=== PATIENT | female | born 1985 | race Caucasian/White ===

== ENCOUNTER 2018-11-23 12:53 | Emergency (ER) | payer BC, SELFPAY ==
[2018-11-23] VITALS (34 sets, daily range): BP systolic 110–142; BP diastolic 60–88; PULSE 80–106; RESP 13–26; TEMP 36.8–37.1; O2SAT 92–100
--- NOTE | 2018-11-23 13:02 | W.ED.GENAD ---
Discharge Plan Disposition Patient Disposition: HOME Condition: Improving Discharge Details Chief Complaint: Allergic Clinical Impression: Allergic reaction Primary Care Provider: Amy Cedeno ED Provider: Pooja Rubin Home Meds and New Rx's Prescriptions: New prednisone 20 mg tablet 20 mg PO DAILY Qty: 6 RF: 0 Continued epinephrine [EpiPen] 0.3 mg/0.3 mL auto-injector 0.3 mg IM ONCE RF: 0 Discharge Instructions Instructions: General Allergic Reaction (ED) Additional Instructions: Encourage hydration. Take prednisone as prescribed, begin this tomorrow morning. Please follow-up with primary care next week for reevaluation. You may continue with Benadryl as needed. If you develop shortness of breath, difficulty breathing, intraoral lesions, swelling of your tongue or other new/worsening symptoms please seek care urgently once again. Referrals: Amy Cedeno, [facility] [Primary Care Provider] - Medical Decision Making Patient presents today with chief complaint of allergic reaction to cashews, known allergen. On exam, patient appears anxious, shaky. She has some swelling, most notable of the left eye. I do not appreciate any swelling of the tongue. There is no stridor or wheezing. Patient is tachypneic and tachycardic. Clinic is 0.3 mg IM epinephrine, Zantac, Solu-Medrol. Will give albuterol inhaler. Discussed explained the patient is in agreement. We will continue to monitor. Patient feeling improved after above regimen. Continues to have no wheezing. She feels that her breathing is improved. Shestill has swelling over her eyes but no rash noted on reexamination. Patient is not feeling fatigued or feeling much improved. Patient has been in the department for 4 hours and continues to feel improved with no recurrence of her symptoms. Patient will be discharged home. Will prescribe prednisone burst to prevent recurrence of symptoms. Advise follow-up with primary care next week. She is given strict return precautions. All her questions and concerns were addressed she is in agreement this plan. Patient has an EpiPen at home and knows how and when to use this. Discussed removing all nut containing products in the house with her . HPI General Mode of arrival: ambulatory. Date/Time Provider Initiated Documentation: 11/23/18 12:54. Limitations to Documentation: no limitations. Information obtained by: patient, family and RN notes reviewed. HPI Narrative: Patient is a 33-year-old female, brought in by 1 of her friends, after ingestion of cashew. 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 Was in a bike race and had a energy bar without knowing that it contained cashews. States that she immediately felt off, develop shortness of breath, facial swelling, itching of her chest, neck and face. She feels that her tongue is swelling. She reports that she took Benadryl orally but did not use her EpiPen. Related Data Home Medications Medication Instructions Recorded Confirmed epinephrine 0.3 mg/0.3 mL 0.3 mg IM ONCE 11/21/18 11/23/18 injection, auto-injector prednisone 20 mg PO DAILY #6 tab 11/23/18 Previous Rx's Medication Instructions Recorded prednisone 20 mg PO DAILY #6 tab 11/23/18 Allergies Allergy/AdvReac Type Severity Reaction Status Date / Time kiwi Allergy Severe Mouth and Unverified 10/28/18 08:45 Throat Itchy/Hives tree nut Allergy Severe Anaphylaxis Unverified 10/28/18 08:45 banana Allergy Intermediate Itching Unverified 10/28/18 08:45 Review of Systems Constitutional Reports as per HPI, Denies chills, Denies fever(s) and Denies headache(s) Eyes Reports as per HPI, Denies eye discharge and Denies irritation ENT Reports as per HPI, Denies headache(s), Reports throat swelling and Reports tongue swelling Cardiovascular Reports as per HPI, Denies chest pain, Reports dyspnea and Denies dyspnea on exertion Respiratory Reports as per HPI, Denies pain on inspiration, Denies pain with cough, Reports dyspnea, Denies dyspnea on exertion and Reports wheezing Gastrointestinal Reports as per HPI, Denies abdominal pain, Denies change in bowel habits, Reports nausea and Denies vomiting Integumentary/Breasts Reports as per HPI and Denies rash Neurologic Reports as per HPI and Denies headache(s) Allergic/Immunologic Reports throat swelling, Reports tongue swelling and Reports wheezing [facility] Medical History Migraine (Chronic) Multinodular goiter (Acute) Perineural cyst (Acute) Hx of viral meningitis (Acute ~12/2014) Melanocytic nevus of skin (Acute) Right knee pain (Acute) Family History Brother Atopy Asthma Father Atopy Paternal Grandmother Stroke Mother Hyperlipidemia SVT (supraventricular tachycardia) Sister Endometriosis Maternal Grandfather Myocardial infarction Colon cancer Maternal Grandmother Hyperlipidemia Paternal Grandfather Aortic aneurysm Social History Smoking/Tobacco Use Status: Never Additional Social history: unable to assess Exam Const General: cooperative, healthy appearing, comfortable, no acute distress, well developed and well groomed Nutritional Appearance: average body habitus and well nourished Orientation: alert and awake [facility] Head: normal to inspection, normocephalic and atraumatic Ears: hearing grossly normal bilaterally and external ears normal General nose exam: external nose normal and nares normal Face and sinus: normal facial exam, sinuses nontender and face symmetric Mouth: oral mucosae normal, lip normal, tongue normal, oropharynx normal and moist mucous membranes Teeth and gingiva: dentition normal Throat: posterior oropharynx normal, tonsils normal and uvula midline Eyes Periorbital: periorbital findings abnormal (swelling of upper eyelids) Conjunctivae: conjunctivae normal Pupils: PERRL EOM: EOM intact bilaterally Neck Neck: normal visual inspection, full ROM, no lymphadenopathy and no meningeal signs Resp Effort & Inspection: normal respiratory effort, able to speak in complete sentences and no respiratory distress Auscultation: clear to auscultation bilaterally, no rales, no rhonchi and no wheezes Cardio Rate: regular rate Rhythm: regular rhythm Heart Sounds: S1 normal and S2 normal Skin General skin exam: no rashes or lesions noted Neuro General: alert and awake Cognition: normal cognition Speech: speech normal Gait: normal gait Psych Appearance: grossly normal and well kempt Mental Status: mental status grossly normal Speech and Movement: speech and movement normal
[2018-11-23] MEDS: EPINEPHrine 1 MG/ML AMP pres-free (13:11)
[2018-11-23] MEDS: methylPREDNISolone SUCC 125 MG VIAL IVP (13:12)
[2018-11-23] MEDS: Albuterol 2.5 MG/3 ML INH SOLN VIAL UPD (13:13)
[2018-11-23] MEDS: Ondansetron 4 MG/2 ML VIAL IVP (13:13)
[2018-11-23] MEDS: Normal Saline 1,000 ML 1000 ML IV (13:14)
== END 2018-11-23 17:02 | disposition home or self-care (01) ==
PROVIDERS: Emergency Provider Physician Assistant; PCP Nurse Practitioner Adult Health
DX: T78.1XXA Other adverse food reactions, not elsewhere classified, initial encounter (principal); H05.222 Edema of left orbit; R06.82 Tachypnea, not elsewhere classified; R00.0 Tachycardia, unspecified; L29.8 Other pruritus; R60.0 Localized edema; Z91.018 Allergy to other foods
CPT/HCPCS: 80053; 94640; 96361; 96365; 96372; 96375; 99284; 85025; J0171; J2405; J2930; J7613

== ENCOUNTER 2019-09-05 02:02 | Outpatient (CLI) | payer BC, SELFPAY ==
--- NOTE | 2019-09-05 11:02 | DI.MRI_ITS ---
EXAM: MR LOWER JOINT RT WO CLINICAL HISTORY: ACUTE RT KNEE PAIN, M25.561, ? MEDIAL MENISCUS TEAR. TECHNIQUE: Multiplanar multisequence MRI was performed. COMPARISON: No exams were available for comparison FINDINGS: MR examination of the knee was performed according to the usual protocol. There is no significant ximena ny signal abnormality seen. The articular cartilage of all three joints appears within normal limits . The extensor mechanism appears normal. No retinacular injury. Hoffa fat pad is unremarkable. Cruciate ligaments appear intact. Menisci appear normal with no evidence of tear. No collateral lig ament injury or posterolateral corner abnormality seen. IMPRESSION: Negative knee MRI.
== END 2019-09-05 02:22 ==
PROVIDERS: PCP Nurse Practitioner Adult Health; Visit Provider Orthopaedic Surgery
DX: M25.561 Pain in right knee (principal)
CPT/HCPCS: 73721

== ENCOUNTER 2021-01-03 15:48 | Outpatient (REF) | payer BC, SELFPAY ==
--- NOTE | 2021-01-03 14:00 | PAPFT_PTH ---
PATIENT: Tia Rajan LOC: [facility] U#:[id number] AGE/SX: 35/F ROOM: RE01/03/[address]: Amy Cedeno APRN : 1985 BED: DIS: 01/03/2021 SPEC #: [id number] RECD: 01/03/21 18:01 STATUS: R[place] REQ #: [id number] ROJAS: 01/03/21 14:[address]: Amy Cedeno DEPT: [facility] Cytology RECD BY: Rae Nina Tissues: 1 - CX/ENDOCX FOR PAP SMEARS Procedures: PAP THIN PREP/UVM Screening HPV DNA PROBE Comments: [id number]
== END 2021-01-03 15:49 | disposition home or self-care (01) ==
LOC: LBN 15:48
PROVIDERS: PCP Nurse Practitioner Adult Health; Visit Provider Nurse Practitioner Adult Health
DX: Z12.4 Encounter for screening for malignant neoplasm of cervix (principal); Z11.51 Encounter for screening for human papillomavirus (HPV)
CPT/HCPCS: 88142; 87624

== ENCOUNTER 2021-07-07 15:17 | Outpatient (REF) | payer BC, SELFPAY ==
[2021-07-07 17:59] LABS: Abs Immature Grans 0.02 10^3/uL (0.0-0.06); Absolute Basophil Count 0.05 10^3/uL (0.0-0.2); Absolute Eosinophil Count 0.11 10^3/uL (0.0-0.7); Absolute Lymphocyte Count 3.18 10^3/uL (1.2-3.4); Absolute Monocyte Count 0.94 10^3/uL (0.1-0.8); Absolute Neutrophil Count 5.24 10^3/uL (1.2-6.7); Basophils % 0.5; Eosinophils % 1.2; HCT 37.3 % (36.0-46.0); HGB 12.2 g/dL (11.2-15.7); Immature Grans % 0.2; Lymphocytes % 33.3; MCH 29.3 pg (27.0-33.0); MCHC 32.7 % (32.0-36.0); MCV 89.7 fL (80-95); MPV 10.3 fL (8.0-11.0); Monocytes % 9.9; Neutrophils % 54.9; Nucleated RBC 0 %; Platelet Count 355 10^3/uL (130-400); RBC 4.16 10^6/uL (3.93-5.22); RDW-SD 39.5 fL; WBC 9.54 10^3/uL (4.4-10.8)
[2021-07-07 18:08] LABS: ALT 17 U/L (14-59); AST 10 U/L (15-37); Albumin 4.1 g/dL (3.4-5.0); Alkaline Phosphatase 54 U/L (46-116); Anion Gap 7.4 mmol/L (3-11); BUN 14 mg/dL (7-18); Bilirubin, Total 0.2 mg/dL (0.2-1.0); CO2 27.6 mmol/L (21.0-32.0); CREATININE 0.7 mg/dL (0.55-1.02); Chloride 104 mmol/L (98-107); Glucose 99 mg/dL (74-106); Potassium 4.2 mmol/L (3.5-5.1); Sodium 139 mmol/L (136-145); Total Protein 6.9 g/dL (6.4-8.2)
== END 2021-07-07 15:18 | disposition home or self-care (01) ==
LOC: LBN 15:17
PROVIDERS: Nurse Practitioner Family; PCP Nurse Practitioner Adult Health; Visit Provider Nurse Practitioner Adult Health
DX: R10.84 Generalized abdominal pain (principal)
CPT/HCPCS: 80053; 85025

== ENCOUNTER 2021-07-15 19:09 | Emergency (ER) | payer BC, SELFPAY ==
--- NOTE | 2021-07-15 19:13 | W.ED.GENAD ---
Discharge Plan Disposition Patient Disposition: HOME Condition: Improving Discharge Details Clinical Impression: Chronic abdominal pain Primary Care Provider: Amy Cedeno ED Provider: Candy Younger Home Meds and New Rx's Prescriptions: New dicyclomine 20 mg tablet 20 mg PO TID PRN (Reason: pain) Qty: 14 RF: 0 Continued Mirena 20 mcg/24 hours (5 yrs) 52 mg intrauterine device 1 device IY ONCE RF: 0 albuterol sulfate [Proventil HFA] 90 mcg/actuation HFA aerosol inhaler 1 - 2 puff IH Q6H PRN (Reason: shortness of breath or wheezing) Qty: 8.5 RF: 1 epinephrine [EpiPen] 0.3 mg/0.3 mL auto-injector 0.3 mg IM ONCE Qty: 2 RF: 1 Discharge Instructions Instructions: Chronic Abdominal Pain (ED) Additional Instructions: Your lab work and CT scan were reassuring today and show no evidence of acute abnormal significant findings. Drink plenty of fluids and plenty of rest. Start taking lirr-qmo-qirdbuf MiraLAX daily which may help with constipation as a moderate amount of stool was noted within your colon on the CT scan today. A prescription for Bentyl which is a medication that can help with abdominal spasm has been sent electronically to your pharmacy. You have been placed on women's wellness and general surgery's list for follow-up. Please call their offices to confirm your follow-up appointments. Follow-up with your primary care doctor in 1 week. Return to the emergency department with any worsening or new concerning symptoms such as fever, persistent vomiting or worsening pain. Referrals: [facility] [Provider Group] Stacy De Leon MD [ [facility] STAFF PHYSICIAN] - Gabriela Park DO [OSTEOPATHIC DOCTOR] - Discharge Data Discharge Physician: Candy Younger Medical Decision Making 36-year-old female presents with left lower quadrant pain for the past 2.5 weeks. She appears comfortable and nontoxic. Vitals within normal limits. She has tenderness to her left lower quadrant but no rigidity or guarding. Differential diagnosis includes acute diverticulitis, pyelonephritis, UTI, kidney stone, ovarian cyst, etc. Will place an IV, bolus IV fluids, screening labs, urinalysis, CT abdomen pelvis and give a dose of Toradol and reassess. Labs reviewed and unremarkable. CT notes: IMPRESSION: 1. There is a moderate amount of stool distributed in the mid and proximal colon suggesting possible constipation. 2. Mild proximal sigmoid diverticulosis without evidence of diverticulitis. 3. No evidence of hydronephrosis or urolithiasis. No evidence of pyelonephritis. 4. Noncalcified pulmonary nodules in the lung bases measuring up to 6.2 mm. These are nonspecific. Please see follow-up recommendations above. 5. Additional nonemergent findings detailed above. Patient reassessed and her pain is improved. Results discussed with patient. Advised that she start taking MiraLAX daily which may help with some pain relief. She was given a dose of Bentyl here and a prescription sent electronically to her pharmacy. She was previously aware of her pulmonary nodules. Patient feels comfortable going home. Although her CT notes diverticulosis, with normal white blood cell count and without fever or evidence of diverticulitis, do not see indication for antibiotics and the patient is agreeable. Although she has no urethritis symptoms, she was offered pelvic exam but declined stating she can follow-up with women's wellness for this. Patient was placed on general surgery for reevaluation and consideration for colonoscopy and with [facility] for re-evaluation and also for new IUD placement as she states she is due. Advised to follow up with the primary care doctor for re-evaluation. Usual and customary return precautions given prior to discharge. Medical Records Medical records reviewed: Yes I reviewed the patient's medical records. Imaging Data Radiologic Study: Radiologist's impression: CT Abdomen And Pelvis With Contrast Exam date and time: 07/15/2021 7:55 PM Age: 36 years old Clinical indication: Other: Llq pain, R/O diverticulitis, kidney stone, pyelo TECHNIQUE: Imaging protocol: Computed tomography of the abdomen and pelvis with contrast. Total images: 1115 COMPARISON: MR LOWER JOINT RT WO 09/05/2019 11:02 AM FINDINGS: Lungs: 5 mm juxtapleural pulmonary nodule in the anterior right middle lobe on series 5, image 9. 5.5 mm juxtapleural nodule in the posterior right base on image 162. 6.2 mm nodule in the posterolateral left lower lobe on image 49. For patients at low risk (minimal or absent history of smoking and of other known risk factors), recommend CT at 3-6 months, then consider CT at 18-24 months. For patients at high risk (history of smoking or of other known risk factors), recommend CT at 3-6 months, then CT at 18-24 months. (Najma et al., Fleischner Society, 2017). Heart: Heart size normal. Mediastinal space: The visualized distal esophagus is largely contracted without gross abnormality. Liver: Normal contour. No mass lesions. No intrahepatic biliary ductal dilatation. Normal variant hepatic venous drainage from the right hepatic lobe posterior segment to the IVC. Gallbladder and bile ducts: The gallbladder is partially contracted but otherwise unremarkable. Nondilated common bile duct. Pancreas: Normal. No inflammatory changes or ductal dilation. Spleen: Normal. No splenomegaly. Adrenal glands: Normal. No adrenal mass. Kidneys and ureters: No acute abnormalities. No hydronephrosis or hydroureter. No urinary tract stones are identified. Stomach and bowel: The stomach is largely contracted without gross abnormality. The small bowel is nondilated with no gross abnormality. There is a moderate amount of stool distributed in the mid and proximal colon suggesting possible constipation. Mild proximal sigmoid diverticulosis without evidence of diverticulitis. Appendix: Retrocecal appendix measuring 5 mm diameter with no evidence of appendicitis. Intraperitoneal space: No free fluid or air. Vasculature: No acute process. No abdominal aortic aneurysm. Lymph nodes: No adenopathy. Urinary bladder: Unremarkable as visualized. Reproductive: IUD in the uterus, grossly well-positioned. Bones/joints: No acute osseous abnormalities. Soft tissues: Unremarkable. IMPRESSION: 1. There is a moderate amount of stool distributed in the mid and proximal colon suggesting possible constipation. 2. Mild proximal sigmoid diverticulosis without evidence of diverticulitis. 3. No evidence of hydronephrosis or urolithiasis. No evidence of pyelonephritis. 4. Noncalcified pulmonary nodules in the lung bases measuring up to 6.2 mm. These are nonspecific. Please see follow-up recommendations above. 5. Additional nonemergent findings detailed above. Lab Data Lab results reviewed: Yes I reviewed the patient's lab results. Labs: Laboratory Tests Range/Units 07/15/21 07/15/21 07/15/21 19:20 19:20 19:20 WBC (4.4-10.8) 10^3/uL 9.89 RBC (3.93-5.22) 10^6/uL 3.98 Hgb (11.2-15.7) g/dL 11.7 Hct (36.0-46.0) % 35.7 L MCV (80-95) fL 89.7 MCH (27.0-33.0) pg 29.4 MCHC (32.0-36.0) % 32.8 RDW (11.7-14.6) % 11.9 Plt Count (130-400) 10^3/uL 339 MPV (8.0-11.0) fL 10.0 Immature Gran % 0.3 Neutrophils % 42.9 Lymphocytes % 45.1 Monocytes % 9.1 Eosinophils % 2.0 Basophils % 0.6 Nucleated RBC % % 0 Absolute Neutrophils (1.2-6.7) 10^3/uL 4.24 Absolute Lymphocytes (1.2-3.4) 10^3/uL 4.46 H Absolute Monocytes (0.1-0.8) 10^3/uL 0.90 H Absolute Eosinophils (0.0-0.7) 10^3/uL 0.20 Absolute Basophils (0.0-0.2) 10^3/uL 0.06 Sodium (136-145) mmol/L 139 Potassium (3.5-5.1) mmol/L 3.7 Chloride (98-107) mmol/L 105 Carbon Dioxide (21.0-32.0) mmol/L 27.4 Anion Gap (3-11) mmol/L 6.6 BUN (7-18) mg/dL 19 H Creatinine (0.55-1.02) mg/dL 0.7 Estimated GFR/1.73 m2 (mL/min/1.73m2) >= 60.00 Glucose (74-106) mg/dL 85 Calcium (8.5-10.1) mg/dL 8.7 Total Bilirubin (0.2-1.0) mg/dL 0.2 AST (15-37) U/L 18 ALT (14-59) U/L 13 L Alkaline Phosphatase (46-116) U/L 52 Total Protein (6.4-8.2) g/dL 7.0 Albumin (3.4-5.0) g/dL 3.9 Lipase (73-393) U/L 84 Urine Color (Yellow) Yellow Urine Clarity (Clear) Clear Urine pH (5-8) 5.5 Ur Specific [place] (1.005-1.025) >= 1.030 H Urine Protein (Negative) mg/dL Negative Urine Ketones (Negative) mg/dL Negative Urine Blood (Negative) Trace-intact H Urine Nitrite (Negative) Negative Urine Bilirubin (Negative) Negative Urine Urobilinogen (Up TO 0.2) EU/dL 0.2 Ur Leukocyte Esterase (Negative) Negative Urine RBC (0-2) HPF 0-2 Urine WBC (0-5) HPF 0-2 Ur Epithelial Cells (Negative) HPF Rare Urine Crystals (Negative) HPF Negative Urine Bacteria (Negative) HPF Negative Urine Casts (Negative) LPF Negative Urine Mucus (Negative) Negative Urine Other (Negative) Negative Ur Culture Indicated? No Urine Glucose (Negative) mg/dL Negative HPI General Mode of arrival: ambulatory. Date/Time Provider Initiated Documentation: 07/15/21 19:12. Limitations to Documentation: no limitations. Information obtained by: patient. HPI Narrative: Patient is a 36-year-old female who presents to the ED with complaint of left lower quadrant abdominal pain for the past 2 and half weeks. She states the pain is constant dull and burning and intermittent sharp. She states the pain is currently 7/10 but at its worst can be 9/10. She denies any relief with Tylenol, last dose 3 days ago. She does admit to intermittent suprapubic pressure and urinary frequency but denies any dysuria, hematuria, urgency. She states she has not been sexually active for at least 1 year and denies any known exposure to STDs, vaginal discharge, or genital lesions. She does admit to some nausea today but denies any vomiting. She denies any fever or change in bowel movements. She states she has been having regular daily bowel movement which is her baseline. She was seen by her PCP office on 07/07 for this pain and referred for outpatient lab work which was unremarkable with plan for outpatient ultrasound or CT scan if lab work abnormal. She states she has a scheduled CT scan of her abdomen on 07/27. Related Data Home Medications Medication Instructions Recorded Confirmed levonorgestrel 20 mcg/24 hours (7 1 device IY ONCE 12/09/18 07/15/21 yrs) 52 mg intrauterine device albuterol sulfate 90 mcg/actuation 1 - 2 puff IH Q6H PRN #8.5 gm 10/27/20 07/15/21 aerosol inhaler epinephrine 0.3 mg/0.3 mL 0.3 mg IM ONCE #2 each 10/27/20 07/15/21 injection, auto-injector dicyclomine 20 mg PO TID PRN #14 tab 07/15/21 Previous Rx's Medication Instructions Recorded albuterol sulfate 90 mcg/actuation 1 - 2 puff IH Q6H PRN #8.5 gm 10/27/20 aerosol inhaler epinephrine 0.3 mg/0.3 mL 0.3 mg IM ONCE #2 each 10/27/20 injection, auto-injector dicyclomine 20 mg PO TID PRN #14 tab 07/15/21 Allergies Allergy/AdvReac Type Severity Reaction Status Date / Time kiwi Allergy Severe Mouth and Verified 07/15/21 19:29 Throat Itchy/Hives tree nut Allergy Severe Anaphylaxis Verified 07/15/21 19:29 banana Allergy Intermediate Itching Verified 07/15/21 19:29 General MICHELLE: 2 Review of Systems All systems reviewed & are unremarkable except as noted in HPI and below Constitutional Constitutional: Reports as per HPI, Denies chills and Denies fever(s) Eyes Eyes: Denies blurry vision ENT Ears, Nose, Mouth, and Throat: Denies dizziness, Denies sore throat and Denies throat swelling Cardiovascular Cardiovascular: Denies chest pain and Denies dyspnea Respiratory Respiratory: Denies cough and Denies dyspnea Gastrointestinal Gastrointestinal: Reports abdominal pain, Denies diarrhea and Denies vomiting Genitourinary Genitourinary: Denies hematuria and Denies dysuria Musculoskeletal Musculoskeletal: Denies back pain and Denies numbness Integumentary/Breasts Skin/Breast: Denies lesions and Denies rash Neurologic Neurologic: Denies dizziness, Denies localized weakness and Denies numbness Allergic/Immunologic Allergic/Immunologic: Denies throat swelling PFSH All Active Problems (Updated 07/15/21 @ 21:49 by Candy Younger DO) Chronic abdominal pain (Acute) Onychomycosis (Chronic) Toenails Surveillance of intrauterine contraception (Chronic) Placed 2014 ([place]) Ichthyosis vulgaris (Chronic) Emollient Migraine (Chronic) Monthly (IUD helped); treats with excedrin migraine (effective) Medical History History of multiple pulmonary nodules Serial CTs (6mm) in [place] showed stable and no further f/u recommended Hx of viral meningitis (~12/2014) Multinodular goiter ~2008 f/u studies showed resolution 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 Family History Brother Atopy Asthma Father Atopy Paternal Grandmother Stroke Heart disease Mother Hyperlipidemia SVT (supraventricular tachycardia) Sister Endometriosis Maternal Grandfather Myocardial infarction Colon cancer Heart disease Hypertension Maternal Grandmother Hyperlipidemia Paternal Grandfather Aortic aneurysm Social History Smoking/Tobacco Use Status: Never Smoking risk assessment performed?: Yes Alcohol Intake: current Alcohol Intake frequency: a few times a month Drug use: Never Substance use type: does not use Adopted: No Household members: spouse Housing: house Number of Children: 0 Communication Needs: Corrective Lenses Do you need help understanding health information?: Rarely 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 Pets and animals: Yes Pets and animals: dog(s) Current gender identity: female What is your relationship status?: Panel score (0-1 are the most socially isolated patients): 0 What type of physical activity do you participate in: bicycling, running and advised to exercise at least 150 min/week (moderate intensity aerobic) Duration: 60-90 minutes/day Frequency: 5-6 times per week Seatbelt use: always Helmet use: Yes Drive intox or ride w/intox ice delivery driver: No Water heater temp set <120 deg: Yes Working smoke detector in home: Yes Fire extinguisher in home: Yes Carbon monox detector in home: Yes Firearms in home: No Do you feel safe at home: Yes Do you feel safe in your relationship?: Yes Victim of physical abuse: No Victim of emotional abuse: No Victim of sexual abuse: No Additional Social history: unable to assess Exam Const General: cooperative, healthy appearing and no acute distress HENMT Head: normal to inspection Face and sinus: normal facial exam Eyes General: appearance normal, both eyes and all related structures EOM: EOM intact bilaterally Neck Neck: normal visual inspection and No submandibular swelling Lymphatic: no lymphadenopathy noted Chest Chest: normal inspection of the chest and no tenderness Resp Effort & Inspection: normal respiratory effort and able to speak in complete sentences Auscultation: clear to auscultation bilaterally Cardio Rate: regular rate Rhythm: regular rhythm GI Inspection: normal to inspection Palpation: soft, not firm, not rigid and tender in the LLQ Auscultation: hypoactive bowel sounds Skin General skin exam: no rashes or lesions noted Neuro General: patient alert, patient awake and patient oriented x3 Cognition: normal cognition Speech: speech normal Motor: muscle tone normal throughout Sensory Exam: no sensory deficits noted Extrem General: normal to inspection, full ROM, capillary refill normal, no calf tenderness bilaterally and no edema Psych Appearance: grossly normal Mental Status: mental status grossly normal Speech and Movement: speech and movement normal Affect: normal affect
[2021-07-15 19:22] VITALS: BP 139/82; PULSE 75; RESP 16; TEMP 36.8; O2SAT 98
--- NOTE | 2021-07-15 19:45 | DI.CT_ITS ---
Exam(s) CT ABDOMEN PELVIS W EXAM: CT ABDOMEN PELVIS W CLINICAL HISTORY: LLQ pain, r/o diverticulitis, kidney stone, pyelo. TECHNIQUE: Imaging Protocol: Axial computed tomography images with coronal and sagittal reformatted images were created and reviewed CONTRAST MATERIAL: Intravenous: Omnipaque 350 Contrast volume:100 ml Oral: no COMPARISON: No exams were available for comparison FINDINGS: ABDOMEN: Lung Bases: 5 millimeter nodule right lung base. 5 millimeter peripheral nodule right middle lobe. Tiny peripheral nodule left lower lobe, less than 5 millimeters. Liver: Normal density. No measurable mass. Gallbladder and biliary tract: Gallbladder is somewhat contracted but unremarkable. No radiodense ca lculus or ductal dilation. Pancreas: Normal density, no abnormal calcifications or inflammatory process. Spleen: Normal. Kidneys: Normal size, contour and axis. No radiodense stones or obstructive uropathy. No masses seen. Adrenal glands: No masses seen. Abdominal Aorta: Abdominal portion non-dilated. PELVIS: Bladder: No gross wall thickening. No calculi.No focal mass. Bowel: Increased stool consistent with constipation. Minimal sigmoid diverticulosis. No obstruction or bowel wall thickening. Appendix normal. Peritoneal cavity: No ascites, collection or mesenteric inflammatory response. Bones: Within normal limits for age. Reproductive organs: IUD. Within normal limits. Lymph nodes: Unremarkable. Impression: Increased stool. No evidence of obstruction or wall thickening. Normal appendix. RADIATION DOSE DELIVERED: 823.71mGy.cm Total DLP DATA REPOSITORY: All CT scans at this facility are submitted to the National Radiology Data Registry (NRDR) Dose Index Registry (DIR) with the [employer] (ACR). RADIATION OPTIMIZATION: All CT scans at this facility use at least one of these dose optimization te chniques: automated exposure control; mA and/or kV adjustment per patient size (includes targeted exa ms where dose is matched to clinical indication); or iterative reconstruction.
[2021-07-15 19:58] LABS: Abs Immature Grans 0.03 10^3/uL (0.0-0.06); Absolute Basophil Count 0.06 10^3/uL (0.0-0.2); Absolute Lymphocyte Count 4.46 10^3/uL (1.2-3.4); Absolute Neutrophil Count 4.24 10^3/uL (1.2-6.7); Basophils % 0.6; Bilirubin Negative (Negative); Blood Trace-intact (Negative); Clarity Clear (Clear); Glucose Negative (Negative); HCT 35.7 % (36.0-46.0); HGB 11.7 g/dL (11.2-15.7); Immature Grans % 0.3; Ketones Negative (Negative); Leukocyte Esterase Negative (Negative); Lymphocytes % 45.1; MCH 29.4 pg (27.0-33.0); MCHC 32.8 % (32.0-36.0); MCV 89.7 fL (80-95); Monocytes % 9.1; Neutrophils % 42.9; Nitrite Negative (Negative); Nucleated RBC 0 %; Platelet Count 339 10^3/uL (130-400); RBC 3.98 10^6/uL (3.93-5.22); RDW 11.9 % (11.7-14.6); RDW-SD 39.3 fL; Specific Gravity >= 1.030 (1.005-1.025); Urobilinogen 0.2 EU/dL (Up TO 0.2); WBC 9.89 10^3/uL (4.4-10.8); pH 5.5 (5-8)
[2021-07-15 20:09] LABS: Bacteria Negative HPF (Negative); C & S Indicated? No; Casts Negative LPF (Negative); Crystals Negative HPF (Negative); Epithelial Cells Rare HPF (Negative); Mucus Negative (Negative); Other Cells Negative (Negative); RBC 0-2 HPF (0-2); WBC 0-2 HPF (0-5)
[2021-07-15] MEDS: Ketorolac 30 MG/ML VIAL IVP (20:15)
[2021-07-15 20:18] LABS: ALT 13 U/L (14-59); AST 18 U/L (15-37); Albumin 3.9 g/dL (3.4-5.0); Alkaline Phosphatase 52 U/L (46-116); Anion Gap 6.6 mmol/L (3-11); BUN 19 mg/dL (7-18); Bilirubin, Total 0.2 mg/dL (0.2-1.0); CO2 27.4 mmol/L (21.0-32.0); CREATININE 0.7 mg/dL (0.55-1.02); Calcium 8.7 mg/dL (8.5-10.1); Chloride 105 mmol/L (98-107); Glucose 85 mg/dL (74-106); Lipase 84 U/L (73-393); Potassium 3.7 mmol/L (3.5-5.1); Sodium 139 mmol/L (136-145)
[2021-07-15] MEDS: Omnipaque 350 MG/ML 100 ML BTL IJ (20:20)
[2021-07-15] MEDS: Normal Saline Flush 10 ML SYR IVP (20:21)
[2021-07-15] MEDS: Normal Saline 1,000 ML 1000 ML IV (20:51)
--- NOTE | 2021-07-15 21:32 | DI.VRAD_ITS ---
PROCEDURE INFORMATION: Exam: CT Abdomen And Pelvis With Contrast Exam date and time: 07/15/2021 7:55 PM Age: 36 years old Clinical indication: Other: Llq pain, R/O diverticulitis, kidney stone, pyelo TECHNIQUE: Imaging protocol: Computed tomography of the abdomen and pelvis with contrast. Total images: 1115 COMPARISON: MR LOWER JOINT RT WO 09/05/2019 11:02 AM FINDINGS: Lungs: 5 mm juxtapleural pulmonary nodule in the anterior right middle lobe on series 5, image 9. 5.5 mm juxtapleural nodule in the posterior right base on image 162. 6.2 mm nodule in the posterolateral left lower lobe on image 49. For patients at low risk (minimal or absent history of smoking and of other known risk factors), recommend CT at 3-6 months, then consider CT at 18-24 months. For patients at high risk (history of smoking or of other known risk factors), recommend CT at 3-6 months, then CT at 18-24 months. (Najma et al., Fleischner Society, 2017). Heart: Heart size normal. Mediastinal space: The visualized distal esophagus is largely contracted without gross abnormality. Liver: Normal contour. No mass lesions. No intrahepatic biliary ductal dilatation. Normal variant hepatic venous drainage from the right hepatic lobe posterior segment to the IVC. Gallbladder and bile ducts: The gallbladder is partially contracted but otherwise unremarkable. Nondilated common bile duct. Pancreas: Normal. No inflammatory changes or ductal dilation. Spleen: Normal. No splenomegaly. Adrenal glands: Normal. No adrenal mass. Kidneys and ureters: No acute abnormalities. No hydronephrosis or hydroureter. No urinary tract stones are identified. Stomach and bowel: The stomach is largely contracted without gross abnormality. The small bowel is nondilated with no gross abnormality. There is a moderate amount of stool distributed in the mid and proximal colon suggesting possible constipation. Mild proximal sigmoid diverticulosis without evidence of diverticulitis. Appendix: Retrocecal appendix measuring 5 mm diameter with no evidence of appendicitis. Intraperitoneal space: No free fluid or air. Vasculature: No acute process. No abdominal aortic aneurysm. Lymph nodes: No adenopathy. Urinary bladder: Unremarkable as visualized. Reproductive: IUD in the uterus, grossly well-positioned. Bones/joints: No acute osseous abnormalities. Soft tissues: Unremarkable. IMPRESSION: 1. There is a moderate amount of stool distributed in the mid and proximal colon suggesting possible constipation. 2. Mild proximal sigmoid diverticulosis without evidence of diverticulitis. 3. No evidence of hydronephrosis or urolithiasis. No evidence of pyelonephritis. 4. Noncalcified pulmonary nodules in the lung bases measuring up to 6.2 mm. These are nonspecific. Please see follow-up recommendations above. 5. Additional nonemergent findings detailed above. Dictated and Authenticated by: Froy Tran MD. Ordering:GOSIA Gupta MD
[2021-07-15] MEDS: Dicyclomine 20 MG TAB PO (22:05)
--- NOTE | 2021-07-15 22:06 | NUR.NOTE ---
Referrals faxed to [facility] Needs f/u at [facility] with in a week to change [facility] within a couple of weeks for LLQ Pain. Nursing Note:
[2021-07-15 22:08] VITALS: BP 120/77; PULSE 68; RESP 16; O2SAT 99
== END 2021-07-15 22:15 | disposition home or self-care (01) ==
PROVIDERS: Emergency Provider Physician Assistant; PCP Nurse Practitioner Adult Health
DX: R10.32 Left lower quadrant pain (principal); G89.29 Other chronic pain; K57.30 Diverticulosis of large intestine without perforation or abscess without bleeding; Z97.5 Presence of (intrauterine) contraceptive device
CPT/HCPCS: 36415; 80053; 81025; 83690; 96361; 96374; 99285; 74177; 81003; 81015; 85025; 99284; J1885; J3490

== ENCOUNTER 2021-08-24 17:52 | Outpatient (REF) | payer BC, SELFPAY ==
[2021-08-26 15:00] LABS: Chlamydia Result Negative (Negative); GC Result Negative (Negative)
== END 2021-08-24 17:53 | disposition home or self-care (01) ==
LOC: LBN 17:52
PROVIDERS: PCP Nurse Practitioner Adult Health; Visit Provider Nurse Practitioner Women's Health
DX: Z11.3 Encounter for screening for infections with a predominantly sexual mode of transmission (principal)
CPT/HCPCS: 87491; 87591

== ENCOUNTER 2021-10-05 02:09 | Outpatient (CLI) | payer BC, SELFPAY ==
[2021-10-05 09:35] LABS: Source Nasal/Nares
[2021-10-05 14:08] LABS: COVID-19 PCR Negative (Negative)
== END 2021-10-05 02:10 | disposition home or self-care (01) ==
LOC: LBO 02:09
PROVIDERS: PCP Nurse Practitioner Adult Health; Visit Provider Surgery
DX: Z20.822 Contact with and (suspected) exposure to COVID-19 (principal)
CPT/HCPCS: 87635

== ENCOUNTER 2021-10-07 07:59 | Day surgery (SDC) | payer BC, SELFPAY ==
--- NOTE | 2021-10-06 21:02 | W.COLOREPORT ---
Colonoscopy Report Date of procedure: 10/07/21 Pre-op diagnosis general: LLQ pain Post-op diagnosis procedure note: other (Minor diverticula) Surgeon: Gabriela Park Anesthesia Type: General:No Airway Estimated blood loss (mL): 1 Pathology: other Complications: None Disposition: same day Prep: Miralax/Dulcolax Retraction Time: 10 mins Procedure Description: After informed consent was obtained the patient was taken to the procedure room and placed in a left decubitous position. Monitors were applied and a time out was done. The patients name, date of , procedure, allergies to medications and metal in their body was reviewed. The patient was then sedated. Once sedated and comfortable a rectal exam was done. External exam reveals a small external hemorrhoidal tag. Internal exam revealed a normal sphincter tone and no palpable masses. The scope was then introduced and retrofelexed. No internal hemorrhoids were identified. The scope was then advanced to the cecum withoutdifficulty. The TI and appendiceal orifice were identified. The prep was BBPS 3 in all segments for a total of 9. The scope was then slowly retracted over 10minutes back into the rectum. There are no polyps or AVMs visualized today. The scope was removed and the patient was woken up and taken back to Same day surgery in stable condition. Minor diverticula confined in the sigmoid colon. No signs of active bleeding or infection. Biopsies were taken in the cecum/right colon/transverse colon/sigmoid and rectum. All specimens are retrieved and no bleeding is noted. She has a small external hemorrhoidal tag. No polyps or AVMs were visualized today. The patient tolerated the procedure well and there were no immediate complications. Follow up: The patient should follow up in 10 years unless they develop changes in bowel habits or other new gastrointestinal complaints.
--- NOTE | 2021-10-06 21:17 | W.PM.DSUDISC ---
Discharge Plan Disposition Patient Disposition: HOME Condition: Good Discharge Details Reason For Visit: colon scope Attending Provider: Gabriela Park Primary Care Provider: Amy Cedeno Home Meds and New Rx's Prescriptions: No Action Mirena 20 mcg/24 hours (7 yrs) 52 mg intrauterine device 1 insert intrauterine ONCE 0RF Rx Instructions: as a single dose polyethylene glycol 3350 17 gram/dose powder 238 g PO ONCE Qty: 238 0RF Rx Instructions: take per colonoscopy instructions bisacodyl [Dulcolax (bisacodyl)] 5 mg tablet,delayed release (DR/EC) 5 mg PO ONCE Qty: 4 0RF Rx Instructions: take per colonoscopy instructions albuterol sulfate [Proventil HFA] 90 mcg/actuation HFA aerosol inhaler 1 - 2 puff IH Q6H PRN (Reason: shortness of breath or wheezing) Qty: 8.5 1RF Rx Instructions: Anaphylaxis epinephrine [EpiPen] 0.3 mg/0.3 mL auto-injector 0.3 mg IM ONCE Qty: 2 1RF Rx Instructions: Anaphylaxis Discharge Instructions Additional Instructions: DSU Colonoscopy Post-Op Instructions Instructions for Everyone who is given Anesthesia: For your safety, please do the following for the next twenty-four (24) hours: *Do Not operate a motor vehicle (car, truck, motorcycle, etc.) *Do Not drink alcoholic beverages or use any recreational drugs for the first 24 hours or while taking pain medications. The medications in your body may have a reaction that can be dangerous. *Do Not make any important decisions or sign any important papers. Findings:minor diverticula otherwise normal Bx taken Follow up: Dr. Park in 2 weeks time 1. No lifting over 20 pounds or strenuous activity for the first 24 hours after your procedure. After 24 hours there are no restrictions on your activity but you may feel fatigued for a few days. 2. After you arrive home you may have a light meal and return to your normal diet as you can tolerate it without feeling sick to your stomach. 3. You may have a bloated, gaseous feeling in your belly (abdomen) after a colonoscopy. Passing gas and belching will help. Walking or lying down on your left side with your knees flexed may relieve the discomfort. Call the office at [phone] (Office) or [phone] ([facility]) right away if you notice any of the following: a.Vomiting of blood or ?coffee ground stools?. b.Rectal bleeding 1Tbsp, blood clots or continuous bleeding. c.Severe belly (abdominal) pain. d.A hard distended belly (abdomen) and an inability to pass gas. 4. Please don?t expect to have a normal BM (bowel movement) for 2-3 days after your procedure. 5. If there are questions regarding the findings of your procedure, please contact your doctor 6. If you are unable to contact your doctor with a problem, contact the hospital at [phone]. 7. Continue all your regular medications unless directed otherwise. I understand the above instructions and have no questions. Signature of Patient or Adult Escort Name of Responsible Adult Escort Signature of Nurse Date/Time Activity:: see above Diet:: see above Discharge Orders Discharge Orders: Discharge Order (Routine); Ordered 10/06/21 Ordered By: Gabriela Park
[2021-10-07 08:14] VITALS: BP 131/80; PULSE 86; RESP 18; TEMP 36.7; O2SAT 100
[2021-10-07] MEDS: Lactated Ringers 1,000 ML 80 ML IV (08:35)
--- NOTE | 2021-10-07 08:47 | ANES.PREOP_ITS ---
General Info Date of Service Date Performed: 10/07/21 Height: 5 ft 6 in Weight: 74.3 kg Body Mass Index (BMI): 26.4 Surgical Procedure: Operation Date: 10/07/21 09:05 Proposed Procedure Side Surgeon p Colonoscopy w/Biopsy Gabriela Park, DO Meds Allergies and Home Medications Allergies Allergy/AdvReac Type Severity Reaction Status Date / Time kiwi Allergy Severe Mouth and Verified 10/07/21 08:06 Throat Itchy/Hives tree nut Allergy Severe Anaphylaxis Verified 10/07/21 08:06 Home Medication Medication Instructions Recorded albuterol sulfate 90 mcg/actuation 1 - 2 puff IH Q6H PRN #8.5 gm 10/27/20 aerosol inhaler (Proventil HFA) epinephrine 0.3 mg/0.3 mL 0.3 mg (0.3 mL) IM ONCE #2 each 10/27/20 injection, auto-injector (EpiPen) bisacodyl 5 mg tablet,delayed 5 mg PO ONCE #4 tab 09/22/21 release (Dulcolax (bisacodyl)) levonorgestrel 20 mcg/24 hours (7 1 insert INTRAUTERINE ONCE 09/22/21 yrs) 52 mg intrauterine device (Mirena) polyethylene glycol 3350 17 238 g PO ONCE #238 g 09/22/21 gram/dose oral powder Current Visit Medications: Current Medications Generic Name Dose Route Start Last Admin Trade Name Freq PRN Reason Stop Dose Admin Hyoscyamine Sulfate 0.125 mg 10/06/21 21:01 Hyoscyamine 0.125 Mg Sl/Oral/Chew SL DIRECTED PRN Ringer's Solution 1,000 mls @ 80 mls/hr 10/07/21 06:00 10/07/21 08:35 IV 10/27/21 23:59 80 mls/hr INFUSION JESSICA Administration IV Miscellaneous Supplies 1 each 10/07/21 06:00 Iv Access IV 10/27/21 23:59 DIRECTED JESSICA Ondansetron HCl 4 mg 10/06/21 21:01 Ondansetron 4 Mg/2 Ml Vial IVP Q4H PRN PRN Nausea / Vomiting Sodium Chloride 0 ml 10/07/21 06:00 Normal Saline Flush 10 Ml Syr IV 10/27/21 23:59 PRN PRN Sodium Chloride 0 ml 10/07/21 06:00 Normal Saline 10 Ml Vial IJ 10/27/21 23:59 DIRECTED PRN Sterile Water 0 ml 10/07/21 06:00 Water,Injection,Sterile 10 Ml Vial IJ 10/27/21 23:59 DIRECTED PRN PFSH Active Problems Active Problems: Problem Status Onset Code Bowel habit changes R19.4 Diverticulosis K57.90 Intermittent left lower quadrant abdominal pain R10.32 Pulmonary nodule seen on imaging study R91.1 Chronic abdominal pain R10.9, G89.29 Onychomycosis B35.1 Surveillance of intrauterine contraception Z30.431 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 H/O total cystectomy Z90.6 Migraine G43.909 Medical History Medical History History of multiple pulmonary nodules Serial CTs (6mm) in [place] showed stable and no further f/u recommended Hx of viral meningitis (~12/2014) Multinodular goiter ~2008 f/u studies showed resolution 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 Tobacco Smoking/Tobacco Use Status: Never Alcohol Alcohol Intake: current Alcohol intake frequency: a few times a month Substance Use Substance use: Never Substance use type: does not use Vital Signs and Lab Results Vital Signs Most Recent Vital Signs in EMR: Most Recent Vital Signs Temp Pulse Resp BP Pulse Ox 36.7 C 86 18 131/80 100 10/07/21 08:14 10/07/21 08:14 10/07/21 08:14 10/07/21 08:14 10/07/21 08:14 Lab Results Blood Type / Crossmatch: No Data to Display Complete Blood Count: No Data to Display Complete Metabolic Panel: No Data to Display Liver Function Panel: No Data to Display Coagulation Panel: No Data to Display Cardiac Panel: No Data to Display Arterial Blood Gas: No Data to Display Venous Blood Gas: No Data to Display Pancreas Panel: No Data to Display Thyroid Panel: No Data to Display Infectious Disease: Coronavirus (COVID-19)(PCR) Negative (Negative) 10/05/21 08:43 10/05/21 Coronavirus 2019 Source Nasal/Nares 10/05/21 08:43 10/05/21 Blood Cultures: No Data to Display Toxicology Panel: No Data to Display Panel: No Data to Display Anesthesia Assessment and Plan Anesthesia History Personal History: No History of Anesthesia Complications Family History: No Family History of Anesthesia Complications Exercise Tolerance Exercise Tolerance: Metabolic Equivalents>4 Pertinent Negatives Pertinent Negatives: No Symptoms of GERD Cardiac & Pulmonary Exam Cardiac Exam: Normal S1/S2 Heart Sounds Pulmonary Exam: Clear Bilateral Breath Sounds Implantable Cardiac Device Does patient have a Pacemaker or an ICD?: No Airway Exam Known Difficult Airway: No Mallampati Class: 2 Mouth Opening: Normal (> 3cm) Thyromental Distance: Greater than 3 cm Neck Range of Motion: Full ROM Neck Circumference: Normal Teeth Condition: Normal Dentition ASA Classification ASA Score: ASA 2 Emergency Case?: No NPO Status NPO Status: NPO Clears >2 hours, Solids >8 hours Status Status: Negative HCG Anesthesia Plan Resuscitation Status: Full Code Anesthesia Technique: General Anesthesia Airway Planned: Natural Airway Monitors Used: Standard Monitors
[2021-10-07 08:49] VITALS: BMI 26.4
--- NOTE | 2021-10-07 09:11 | BOWEL_PTH ---
PATIENT: Tia Rajan LOC: [facility] U#:[id number] AGE/SX: 36/F ROOM: RE10/07/[address]: Gabriela Park : 1985 BED: DIS: 10/07/2021 SPEC #: [id number] RECD: 10/07/21 12:30 STATUS: RICO REIngrid #: [id number] ROJAS: 10/07/21 09:[address]: Gabriela Park DEPT: Surgical Specimen RECD BY: Rae Nina ENTERED: 10/07/21 12:37 SP TYPE: Bowel OTHR DR: Amy Cedeno, ZELDA Tissues: 1 - BIOPSY BOWEL 2 - BIOPSY BOWEL 3 - BIOPSY BOWEL 4 - BIOPSY BOWEL 5 - BIOPSY BOWEL Procedures: GROSS AND MICRO LEVEL 4 Comments: [id number]
[2021-10-07 09:25] VITALS: BP 105/64; PULSE 75; RESP 18; TEMP 36.6; O2SAT 99
[2021-10-07 09:56] VITALS: BP 124/81; PULSE 63; RESP 16; TEMP 36.3; O2SAT 100
--- NOTE | 2021-10-07 10:44 | W.ANESPOSTOP ---
Postoperative Evaluation Date, Time and Location Date Performed: 10/07/21 Time Performed: 10:44 Patient Location: Day Surgery Unit Vital Signs Most Recent Imported Vital Signs: Most Recent Vital Signs Temp Pulse Resp BP Pulse Ox 36.3 C L 63 16 124/81 100 10/07/21 09:56 10/07/21 09:56 10/07/21 09:56 10/07/21 09:56 10/07/21 09:56 Pain Score Most Recent Pain Score: Most Recent Pain Score Pain Level 0 10/07/21 09:56 Assessment Mental Status: Awake (Alert & Oriented to Patient Baseline) Airway and Respiratory Function: Patent airway with normal (patient baseline) respiratory exam Cardiovascular Function: Hemodynamically Stable Hydration Status: Adequately Hydrated Nausea & Vomiting: No Nausea or Vomiting Pain: Pt. Denies Any Pain Peripheral Nerve Block: Patient did not receive a nerve block
== END 2021-10-07 10:55 | disposition home or self-care (01) ==
PROVIDERS: PCP Nurse Practitioner Adult Health; Visit Provider Surgery
PROC: 0DJD8ZZ Inspection of Lower Intestinal Tract, Via Natural or Artificial Opening Endoscopic (ICD-10-PCS; CPT 45378; principal; 2021-10-07 09:00)
DX: R19.4 Change in bowel habit (principal); R10.32 Left lower quadrant pain; K57.30 Diverticulosis of large intestine without perforation or abscess without bleeding; K63.89 Other specified diseases of intestine
CPT/HCPCS: 45380; 81025; 88305; J2001; J2405; J2704

== ENCOUNTER 2022-02-06 18:46 | Outpatient (REF) | payer BC, SELFPAY ==
[2022-02-06 19:40] LABS: Abs Immature Grans 0.02 10^3/uL (0.0-0.06); Absolute Basophil Count 0.04 10^3/uL (0.0-0.2); Absolute Eosinophil Count 0.14 10^3/uL (0.0-0.7); Absolute Lymphocyte Count 2.38 10^3/uL (1.2-3.4); Absolute Monocyte Count 0.69 10^3/uL (0.1-0.8); Absolute Neutrophil Count 3.43 10^3/uL (1.2-6.7); Basophils % 0.6; Eosinophils % 2.1; HCT 36.1 % (36.0-46.0); HGB 11.9 g/dL (11.2-15.7); Immature Grans % 0.3; Lymphocytes % 35.5; MCH 30.1 pg (27.0-33.0); MCV 91 fL (80-95); MPV 10.9 fL (8.0-11.0); Monocytes % 10.3; Neutrophils % 51.2; Platelet Count 311 10^3/uL (130-400); RBC 3.96 10^6/uL (3.93-5.22); RDW 12.5 % (11.7-14.6); RDW-SD 41.1 fL
[2022-02-06 20:27] LABS: ALT 16 U/L (14-59); AST 11 U/L (15-37); Alkaline Phosphatase 41 U/L (46-116); Anion Gap 8.7 mmol/L (3-11); BUN 11 mg/dL (7-18); Bilirubin, Total 0.2 mg/dL (0.2-1.0); CO2 27.3 mmol/L (21.0-32.0); CREATININE 0.7 mg/dL (0.55-1.02); Calcium 8.6 mg/dL (8.5-10.1); Chloride 107 mmol/L (98-107); Folate 13.2 ng/mL (8.6-20.0); Glucose 119 mg/dL (74-106); Potassium 3.9 mmol/L (3.5-5.1); Sodium 143 mmol/L (136-145); TSH (W/Ref FT4) 0.98 uIU/mL (0.36-3.74); Total Protein 6.5 g/dL (6.4-8.2); Vitamin B12 201 pg/mL (193-986)
[2022-02-08 11:41] LABS: Lyme Ab w Rflx to Lyme Confirm Negative (Negative)
[2022-02-10 10:18] LABS: Anaplasma phagocytophilum Negative (Negative); B. miyamotoi PCR Negative (Negative); Babesia divergens/MO-1 Negative (Negative); Babesia duncani Negative (Negative); Babesia microti Negative (Negative); Ehrlichia chaffeensis Negative (Negative); Ehrlichia ewingii/canis Negative (Negative); Ehrlichia muris eauclairensis Negative (Negative)
== END 2022-02-06 18:47 | disposition home or self-care (01) ==
LOC: NCHCN 18:46
PROVIDERS: PCP Nurse Practitioner Adult Health; Visit Provider Nurse Practitioner Adult Health
DX: G44.309 Post-traumatic headache, unspecified, not intractable (principal); R42 Dizziness and giddiness; R53.83 Other fatigue; S09.8XXS Other specified injuries of head, sequela
CPT/HCPCS: 80053; 87798; 82607; 82746; 84443; 85025; 86618

== ENCOUNTER 2025-06-09 07:35 | Outpatient (CLI) | payer OTHER, SELFPAY ==
[2025-06-09 07:31] VITALS: BP 124/84; PULSE 98; RESP 18; TEMP 36.5; O2SAT 95
--- NOTE | 2025-06-09 08:05 | PDOC.PAIN_ITS ---
Date of service: 06/09/25 Time of Service: 08:19 Pain Managment Procedure Note Procedure Note Procedure Note: Ultrasound guidedTrigger Point Injection ? Location: Bilateral trapezius and levator muscles ? Pre-procedure Diagnosis:? M79.10- Myalgia, unspecified site ? Post-procedure Diagnosis:? The same as above ? Sedation: none? Estimated blood loss: < 1 ml ? Surgeon:? Guido Ozuna MD ? Procedure Detail:?? The procedure and potential risks were explained to the patient and informed written consent was obtained. Time out was performed in procedure room with nursing staff confirming the patient's identity, procedure t o be performed, allergies, and any blood thinning or anti-platelet medications. Sterile gloves were used, a face mask was worn, and new single dose vials of all medications were used with the top being swabbed with alcohol and given time to dry prior to withdrawal of medication.? Trigger points were palpated and confirmed to reproduce the patient?s pain symptoms.? Pre-injection ultrasound scanning of the area of interest was performed using Linear transducer, identifying relevant anatomy, landmarks, and neurovascular structures allowing for optimal needle path. The site was then prepared in the usual sterile fashion, using thorough Chlorhexadine preparation of the skin and sterile draping. The same ultrasound transducer was then passed into the sterile field using sterile probe cover and sterile ultrasound gel. Using high-frequency ultrasound probe with sterile cover target was identified.? ? A 25-gauge 1.5 inch needle was advanced to the target.? following negative aspiration a total of 10 ml from a mixture of 0.5% bupivacaine and 40 mg Depo- Medrol was injected.? Bilaterally at the trapezius and levators muscles- total of 6 sites? The patient tolerated the procedure well. Patient discharged home in stable condition. PAIN: PRE-PROCEDURE 12/06 POST-PROCEDURE 10/06 Plan:? Follow up prn. Patient is following up with cervical MRI Coding Conscious Sedation used for procedure: No CPT Codes: TPI Single/Multi >3 Muscles - 64221 ([id number] ~G) 50 - BILATERAL PROCEDURE Ultrasound - 68834 ([id number] ~G) 50 - BILATERAL PROCEDURE Additional Codes: Date of Service (16047) Diagnoses: M79.10- Myalgia, unspecified site
[2025-06-09 08:08] VITALS: PULSE 100; O2SAT 99
[2025-06-09 08:10] VITALS: PULSE 101; O2SAT 99
[2025-06-09] MEDS: Nerve Block Tray 1 EACH MC (08:26)
[2025-06-09] MEDS: methylPREDNISolone ACETATE 40 MG/ML VIAL IJ (08:27)
[2025-06-09] MEDS: Bupivacaine 0.5% Pres-Free 10 ML VIAL IJ (08:27)
== END 2025-06-09 07:36 | disposition home or self-care (01) ==
PROVIDERS: PCP Nurse Practitioner Adult Health; Visit Provider Anesthesiology Pain Medicine
DX: M79.18 Myalgia, other site (principal)
CPT/HCPCS: 20553; J0665; J1010

== ENCOUNTER 2025-06-15 02:01 | Outpatient (CLI) | payer OTHER, SELFPAY ==
[2025-06-15 10:55] LABS: Vitamin B12 388 pg/mL (211-911)
[2025-06-15 11:07] LABS: Folate > 24.0 ng/mL (>5.38)
[2025-06-15 11:08] LABS: Anion Gap 9.2 mmol/L (3-11); BUN 14 mg/dL (9-23); CO2 21.8 mmol/L (20.0-31.0); Calcium 9.0 mg/dL (8.3-10.6); Chloride 107 mmol/L (98-107); Cholesterol 178 mg/dL (<200); Glucose 89 mg/dL (74-106); HDL Cholesterol 55 mg/dL (>40); Potassium 4.2 mmol/L (3.5-5.1); Sodium 138 mmol/L (136-145)
[2025-06-15 19:40] LABS: HIV-1/2 Ag & Ab Screen Negative (Negative)
[2025-06-15 19:44] LABS: Hepatitis C Ab w Rflx HCV PCR Negative (Negative)
== END 2025-06-15 02:02 | disposition home or self-care (01) ==
LOC: LBO 02:01
PROVIDERS: PCP Nurse Practitioner Adult Health; Referring Provider Nurse Practitioner Adult Health; Visit Provider Nurse Practitioner Adult Health
DX: Z78.9 Other specified health status (principal); Z11.4 Encounter for screening for human immunodeficiency virus [HIV]; Z11.59 Encounter for screening for other viral diseases; Z13.220 Encounter for screening for lipoid disorders; Z13.1 Encounter for screening for diabetes mellitus
CPT/HCPCS: 36415; 80048; 80061; 86803; 87389; 82607; 82746

== ENCOUNTER → 2025-06-18 06:26 | Outpatient (CLI) | payer OTHER, SELFPAY ==
--- NOTE | 2025-06-18 10:00 | DI.MRI_ITS ---
Exam(s) MR CERVICAL SPINE WO EXAM: MR CERVICAL SPINE WO CLINICAL HISTORY: cervicalgia,cervical spondylosis,post laminectomy syndrome,n96.1,m54.2, TECHNIQUE: Multiplanar multisequence MRI of the cervical spine was performed without intravenous contrast. COMPARISON: No exams were available for comparison FINDINGS: BONES: Vertebral body heights are maintained. There is some straightening of the normal thoracic cervical lordosis. Bone marrow signal intensity is within normal limits. CERVICAL CORD: Craniovertebral junction is unremarkable. The cervical cord is normal size and signal intensity. SOFT TISSUES: Unremarkable. C2-3: No disc herniation or bulge is identified. No evidence of neural foraminal narrowing. No significant central canal stenosis. C3-4: No disc herniation or bulge is identified. No evidence of neural foraminal narrowing. No significant central canal stenosis. C4-5: No disc herniation or bulge is identified. No evidence of neural foraminal narrowing. No significant central canal stenosis. C5-6: No disc herniation or bulge is identified. No evidence of neural foraminal narrowing. No significant central canal stenosis. Left-sided nerve root sheath cyst. C6-7: No disc herniation or bulge is identified. No evidence of neural foraminal narrowing. No significant central canal stenosis. Right sided nerve root sheath cyst. C7-T1: No disc herniation or bulge is identified. No evidence of neural foraminal narrowing. No significant central canal stenosis. Left-sided nerve root sheath cyst. IMPRESSION: No evidence of focal disc herniation or central canal stenosis. No bony neural foraminal narrowing or significant degenerative changes. 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 DATA REPOSITORY:
== END ==
LOC: DI 06:27
PROVIDERS: PCP Nurse Practitioner Adult Health; Visit Provider Anesthesiology Pain Medicine
DX: M47.812 Spondylosis without myelopathy or radiculopathy, cervical region (principal); M54.2 Cervicalgia; M96.1 Postlaminectomy syndrome, not elsewhere classified
CPT/HCPCS: 72141

== ENCOUNTER 2025-07-01 13:44 | Outpatient (REF) | payer OTHER, SELFPAY | END 2025-07-01 13:45 | disposition home or self-care (01) | LOC: LBN 13:44 | PROVIDERS: PCP Nurse Practitioner Adult Health; Visit Provider Nurse Practitioner Women's Health | DX: N89.8 Other specified noninflammatory disorders of vagina (principal); N93.0 Postcoital and contact bleeding | CPT/HCPCS: 87480; 87510; 87660 ==

== ENCOUNTER → 2025-07-17 00:15 | Outpatient (CLI) | payer OTHER, SELFPAY ==
--- NOTE | 2025-07-17 12:15 | DI.MAMMO_ITS ---
Exam(s) MAMMO SCREENING EXAM: MAMMO SCREENING CLINICAL HISTORY: screening,Z12.39 TECHNIQUE: Bilateral full field digital CC and MLO mammographic images were obtained with 3D tomosynthesis and utilizing computer aided detection (CAD). COMPARISON: This is a baseline examination. There are no priors for comparison. FINDINGS: Masses/Architectural Distortion: No suspicious masses or areas of architectural distortion are present. Microcalcifications: No suspicious pleomorphic-type are seen. Skin Thickening/Nipple Retraction: None. IMPRESSION: 1. There is no evidence for malignancy seen at this time. 2. Unless there is more urgent need, screening mammography is recommended, as per [place] [employer] guidelines. BI-RADS Category 1 - Negative Breast Density - Category C - The breast are heterogeneously dense, which may obscure small masses. Breast density Category C or D implies that the patient has dense breast tissue. Dense breast tissue can make it harder to find cancer on a mammogram. Dense breast tissue is also associated with an increased risk of breast cancer. This information about the result of the mammogram report was provided to the patient to raise their awareness. Use this report when you speak with the patient about their risks for breast cancer, which includes their family history. At that time, you may recommend additional screening tests (Ultrasound or MRI) as these tests may add significant information. A negative radiographic report should not delay biopsy if a dominant or clinically suspicious mass is present. Up to ten percent of cancers are not identified on mammography. A negative report may reinforce clinical impression. Adenosis and dense breasts may obscure an underlying neoplasm. False positive reports average 6 to 10%. Patient will receive a letter notifying them of these results.
== END ==
LOC: DI 00:15
PROVIDERS: PCP Nurse Practitioner Adult Health; Visit Provider Nurse Practitioner Adult Health
DX: Z12.31 Encounter for screening mammogram for malignant neoplasm of breast (principal)
CPT/HCPCS: 77063; 77067